=== PATIENT | male | born 1950 | race Caucasian/White ===

== ENCOUNTER 2018-12-04 11:20 | Emergency (ER) | payer OTHER, MEDICARE ==
[~2018-12-04] VITALS: Ht 177.8 cm; Wt 112.0 kg
[~2018-12-04 11:20] MED LIST: ASPI-496 PO; DICL75TA3 PO; HYDR-3240 PO; LOSA25TA25 PO; LOSA50TA14 PO; SIMV20TA3 PO
[2018-12-04] MEDS ORDERED: ALLO300T PO (12:16)
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
--- NOTE | 2018-12-04 12:44 | NUR ---
pt back from imaging at this time. reconnected to monitors. vss. no needs expressed. [facility] awaiting results.
--- NOTE | 2018-12-04 13:13 | NUR ---
pt to xr at this time.
[2018-12-04 13:47] VITALS: BP 148/88
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
== END 2018-12-04 14:16 | disposition home or self-care (01) ==
LOC: ED 14:08
DX: S29.012A Strain of muscle and tendon of back wall of thorax, initial encounter (principal); S40.012A Contusion of left shoulder, initial encounter; M54.2 Cervicalgia; I10 Essential (primary) hypertension; V27.4XXA Motorcycle driver injured in collision with fixed or stationary object in traffic accident, initial encounter; Y93.89 Activity, other specified; Y92.89 Other specified places as the place of occurrence of the external cause; Y99.8 Other external cause status
CPT/HCPCS: 70450; 72072; 72125; 99284

== ENCOUNTER → 2020-02-12 | Outpatient (CLI) | payer OTHER, MEDICARE ==
[~2020-02-12] MED LIST changes: +ALLO300T PO; +REGADENOSON 0.4 MG/5 ML SYRINGE ONE; +SIMV20TA19 PO; -SIMV20TA3 PO
== END | disposition home or self-care (01) ==
LOC: CFH 12:51
PROVIDERS: ATTEND Internal Medicine Cardiovascular Disease
DX: I35.0 Nonrheumatic aortic (valve) stenosis (principal); I10 Essential (primary) hypertension
CPT/HCPCS: 78452; 93017; 93306; A9502; J2785